=== PATIENT | male | born 1955 | race African-American/Black ===

== ENCOUNTER → 2019-09-15 | Outpatient (CLI) | payer BC, MEDICARE ==
[~2019-09-15] MED LIST: AMLO2.5T5 PO; ASPI1TAB31 PO; ATAZ300C PO; ELVI1TAB3 PO; EMTR1TAB8 PO; GABA-689 PO; IOHEXOL 180 MG/ML 10 ML VIAL. ONE; LISI1TAB19 PO; RITO100C PO; TRAM50TA PO; methylPREDNISolone ACETATE 40 MG/ML VIAL. ONE; methylPREDNISolone ACETATE 80 MG/ML VIAL. ONE
--- NOTE | 2019-09-15 17:48 | PAIN ---
DATE OF SERVICE: 09/15/2019 INITIAL CONSULTATION FOR PAIN CLINIC CHIEF COMPLAINT: Low back and right lower extremity pain. HISTORY OF PRESENT ILLNESS: This is a 64-year-old male who presents with history of pain since 2011, increasing now in the last year or so, status post lumbar laminectomy in 2012 at L3-L4, L4-L5 and L5-S1 with now a constant ache in the right lower extremity, mostly in the posterior gluteus, posterior thigh, but mostly below the knee on the anterior thigh as well as into the foot and the medial aspect of the right foot as well. The patient reports that shooting, constant, radiating, worse with walking, standing, changing positions, better with sitting or lying down, but awakens him from sleep at least once or twice a night, can affect his bowel or bladder control, but no loss of continence. The patient reports it is difficult for him to walk using a cane at times and does have it with him today. The patient has had epidural injections in the past, trigger point injections, has not had any formal physical therapy recently, was doing some stretching on his own. The injections have helped temporarily. The patient is taking tramadol as well as gabapentin, both of which do decrease the pain to a moderate extent. The patient did have an MRI scan of the lumbar spine dated 07/08/2019 showing multilevel spondylosis overall slowly progressed from previous exam in 2014, mildly worsened at the L3-L4 level. Also, concentric disk bulge at L3-L4, L4-L5 shows [id number] spinal stenosis and severe right greater than left neural foraminal narrowing. L5-S1 shows moderate spinal stenosis, severe bilateral neural foraminal narrowing as well. The patient rates his disability rating from 0-10, 10 being the worst, is a 9 with family home responsibilities, recreation and occupation; 7 with social activity; 2 with sexual behavior, 6 with self-care and 0 with life support activities. PAST MEDICAL HISTORY: Significant for mild hearing loss, urinary tract infections, hypertension, arthritis, cigarette smoking 1 pack every 2 days or so. SURGICAL HISTORY: Previous surgeries include lumbar laminectomy in 2012. No other surgeries. CURRENT MEDICATIONS: Include amlodipine, Genvoya, Excedrin, gabapentin, Truvada, tramadol, Norvir, Reyataz, and lisinopril. ALLERGIES: The patient has no known drug allergies. FAMILY HISTORY: Significant for arthritis. SOCIAL HISTORY: The patient does not drink alcohol, does smoke about half pack of cigarettes a day on average and has for many years. Does not use any illegal, illicit or recreational drugs. He is single. Lives locally in [place], [place]. REVIEW OF SYSTEMS: The patient's review of systems is positive for those items mentioned in history of present illness. All systems reviewed and otherwise negative. It is complete, full and well documented on the patient's chart. PHYSICAL EXAMINATION: VITAL SIGNS: The patient's blood pressure is 143/87, pulse 78, respirations 18, temperature 98.1 degrees Fahrenheit, height is 5 feet 8 inches, weight is 198 pounds. GENERAL: The patient is awake, alert, oriented, appropriate, very pleasant demeanor. HEENT: Shows normocephalic, atraumatic. Extraocular movements are intact and symmetrical. Oral cavity: Mucous membranes moist and pink. Dentition is intact. NECK: Shows anterior throat supple without palpable lymphadenopathy noted. Swallow reflex symmetrical. CHEST: Shows normal on inspection. Breath sounds clear to auscultation bilaterally. HEART: Shows S1, S2 clear. No murmurs auscultated. ABDOMEN: Soft, nontender, nondistended. No palpable organomegaly is noted. No rebound or guarding demonstrated. BACK: Shows spine grossly in the midline. Normal appearing thoracic kyphosis and minor flattening of lumbar lordotic curvature with well-healed surgical scarring noted. Lumbar paraspinous muscle shows symmetrical on inspection, with palpation shows some moderate tenderness diffusely throughout the upper, middle and lower distribution of paraspinous musculature, but only diffusely without radiation. The patient has good rotational motion of lumbar spine, both laterally as well as extension and flexion without significant increase in pain. EXTREMITIES: The patient's lower extremities show deep tendon reflexes at 2+ in the patellar, 1+ tendo-calcaneus tendons. Motor exam is strong with 5/5 dorsiflexion, extension, quadriceps and hamstring flexion and symmetrical. Peripheral pulses are 1+ posterior tibia. No peripheral edema is noted. Lower extremities are warm and dry to touch, equal in color and appearance. Gaenslen's and Jimmy's maneuvers are negative bilaterally also. Straight leg raise is negative for reproduction of radicular symptoms bilaterally. The patient is able to stand, stand on his toes without significant difficulty or loss of balance, walks with a slight favoring gait, does appear to favor the right lower extremity and has a cane he is using in his left hand. The patient's skin shows warm and dry, good turgor. No edema. No sores, rashes or bruising throughout. IMPRESSION: 1. This is a 64-year-old male with approximate 7-year history of low back pain, right lower extremity pain, status post lumbar laminectomy L3-L4, L4-L5 and L5-S1 in 2012 with good initial results, but now the pain is returning in the right lower extremity in a radicular fashion. 2. MRI scan of the lumbar spine as noted. 3. Hypertension. 4. Arthritis. 5. Cigarette smoking. PLAN: Options were discussed with the patient including conservative medical managements, physical therapies and interventional techniques. He would like to proceed with interventional techniques since he had some success with these in the past. We discussed a lumbar epidural steroid injection using description as well as anatomical models to describe the procedure. Risks were then discussed including, but not limited to bleeding, infection, possibility of epidural hematoma, subsequent neurological compromise, dural puncture, headaches, spinal cord and/or nerve damage, side effects of steroid medication and poor results regarding pain control. The patient understands and wished to proceed. The patient will return to the clinic in approximately 2 weeks for followup. He was counseled as to return appointment, activity level and side effects to be aware of. DIAGNOSES: Lumbar radiculopathy with lumbar degenerative disk disease and lumbar spinal stenosis and post-lumbar laminectomy syndrome. PROCEDURE: Lumbar epidural steroid injection, translaminar approach L5-S1 level using C-arm fluoroscopic guidance under sterile prep and drape using local anesthetic. MEDICATION INJECTED: A total of 120 mg Depo-Medrol plus 10 mL of preservative-free normal saline and 2 mL of contrast. CONDITION AT DISCHARGE: Stable. The patient tolerated the procedure well, had no complications. LETITIA CALVILLO MD DR: BETH/sally JOB#: [id number] / [id number]
== END ==
LOC: PNCL 08:25
PROVIDERS: ATTEND Anesthesiology
DX: M51.16 Intervertebral disc disorders with radiculopathy, lumbar region (principal); M48.061 Spinal stenosis, lumbar region without neurogenic claudication; M96.1 Postlaminectomy syndrome, not elsewhere classified; I10 Essential (primary) hypertension; F17.210 Nicotine dependence, cigarettes, uncomplicated; Z87.39 Personal history of other diseases of the musculoskeletal system and connective tissue; Z87.440 Personal history of urinary (tract) infections
CPT/HCPCS: 62323; J1030; J1040; Q9965

== ENCOUNTER → 2019-12-28 | Outpatient (CLI) | payer BC, MEDICARE ==
[~2019-12-28] MED LIST changes: +LISI1TAB23 PO; +NORVIR100 M1 PO
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
== END ==
LOC: PNCL 11:07
PROVIDERS: ATTEND Anesthesiology
DX: M51.16 Intervertebral disc disorders with radiculopathy, lumbar region (principal); M48.061 Spinal stenosis, lumbar region without neurogenic claudication; M96.1 Postlaminectomy syndrome, not elsewhere classified
CPT/HCPCS: 62323; J1030; J1040; Q9965

== ENCOUNTER → 2020-04-06 | Outpatient (CLI) | payer MEDICARE ==
--- NOTE | 2020-04-06 10:38 | PAIN ---
DATE OF SERVICE: 04/06/2020 PROGRESS NOTE FOR PAIN CLINIC DIAGNOSIS: Lumbar radiculopathy with lumbar degenerative disk disease, lumbar spinal stenosis and lumbar post-laminectomy syndrome. HISTORY OF PRESENT ILLNESS: The patient is a 64-year-old male who returns for followup status post lumbar epidural steroid injection x 2, most recently 12/28/2019. The patient did very well with about 85% improvement in the low back and left lower extremity pain. The patient reports the pain is returning now over the past few weeks, becoming more noticeable. The patient reports it is worse with walking, standing, change in positions, initially was doing much better with distance walking, work activities, household activities, traveling with greater ease and comfort, now the pain is returning in the low back and in the right greater than left lower extremity and present bilaterally, posterior gluteus, posterior thigh, posterior calves and lateral right calf as well. The patient reports it is an 8 on a scale of 10 at its worst over the past week, 6 on average, 5 at its least and is a 6 today. The patient reports no new motor or sensory deficits, no new bowel or bladder incontinence or other complaints. PHYSICAL EXAMINATION: VITAL SIGNS: The patient's blood pressure is 112/78, pulse 76, respirations 18, temperature 98.1 degrees Fahrenheit, height is 5 feet 8 inches, weight is 201 pounds. GENERAL: The patient is awake, alert, oriented, appropriate, very pleasant demeanor. HEENT: Shows normocephalic, atraumatic. Extraocular movements are intact and symmetrical. Oral cavity: Mucous membranes moist and pink. Dentition is intact. NECK: Shows anterior throat supple without palpable lymphadenopathy noted. Swallow reflex symmetrical. CHEST: Shows normal on inspection. Breath sounds are clear bilaterally. HEART: Shows S1, S2 clear. No murmurs auscultated. ABDOMEN: Soft, nontender, nondistended. No palpable organomegaly is noted. There is no rebound or guarding demonstrated. BACK: Shows spine grossly in the midline, slight exaggerated thoracic kyphosis and minor flattening of lumbar lordotic curvature. Lumbar paraspinous muscle shows symmetrical on inspection, with well-healed surgical scarring noted, with palpation shows some moderate tenderness diffusely bilaterally going diffusely without significant radiation. The patient has good rotational motion of lumbar spine, both laterally as well as extension and flexion without difficulty. EXTREMITIES: The patient's lower extremities show deep tendon reflexes at 2+ patellar, 1+ tendo-calcaneus tendons. Motor exam is strong with 5/5 dorsiflexion, extension, quadriceps and hamstring flexion and symmetrical. Peripheral pulses are 1+ posterior tibia. No peripheral edema bilaterally. Options were discussed with the patient. The patient's old chart was reviewed as his current medication regimen updated. Current review of systems updated today as well. We will proceed with a first in this series of lumbar epidural steroid injection today with fluoroscopic guidance. Risks were discussed including but not limited to bleeding, infection, possibility of epidural hematoma, subsequent neurologic compromise, dural puncture, headaches, spinal cord and/or nerve damage, side effects of steroid medication and poor results regarding pain control. The patient understands and wished to proceed. The patient will return to clinic in approximately 2 weeks for followup. He was counseled on return appointment, activity level and side effects to be aware of. DIAGNOSIS: Lumbar radiculopathy with lumbar degenerative disk disease, lumbar spinal stenosis and lumbar post-laminectomy syndrome. PROCEDURE: Lumbar epidural steroid injection, translaminar approach L5-S1 level using C-arm fluoroscopic guidance under sterile prep and drape using local anesthetic. MEDICATION INJECTED: A total of 120 mg Depo-Medrol plus 10 mL of preservative-free normal saline and 2 mL of contrast. CONDITION AT DISCHARGE: Stable. The patient tolerated the procedure well, had no complications. LETITIA CALVILLO MD DR: BETH/sally JOB#: [id number] / [id number]
== END ==
LOC: PNCL 09:41
PROVIDERS: ATTEND Anesthesiology
DX: M51.16 Intervertebral disc disorders with radiculopathy, lumbar region (principal); M48.061 Spinal stenosis, lumbar region without neurogenic claudication; M96.1 Postlaminectomy syndrome, not elsewhere classified
CPT/HCPCS: 62323; J1030; J1040; Q9965

== ENCOUNTER → 2020-07-14 | Outpatient (CLI) | payer MEDICARE ==
[~2020-07-14] MED LIST changes: -LISI1TAB19 PO; +LISI1TAB37 PO
--- NOTE | 2020-07-14 09:00 | PDOC ---
Progress Note - Pain Clinic Date of Service: DOS: DATE: 07/14/20 TIME: 08:56 Diagnosis: Dx: Lumbar radiculopathy with lumbar degenerative disc disease lumbar spinal stenosis and lumbar postlaminectomy syndrome History or Present Illness: HPI: 64-year-old male returns follow-up status post lumbar epidural steroid junction x1. Last seen April 06, 2020 patient did very well with it 90% improvement in the low back and bilateral lower extremity pain patient ports pain is returning now over the past 2 to 3 weeks in the low back bilateral posterior gluteus posterior thighs posterior calves the legs some in the lateral anterior aspect of the left calf and thigh as well. Patient reports it is aching and dull sharp shooting in the legs pain burning and tingling at times unbearable at times worse with walking standing changing positions better with sitting or lying down is waking her from sleep again for over the first few weeks lately at about every 6 hours patient reports is a 9 on scale 10 is worst 9 on average 7 is least this week and is a 7 today patient reports no new motor or sensory deficits no new bowel or bladder incontinence or other complaints. Physical Exam: VS: Blood pressure is 111/72 pulse 66 respirations 18 temperature 98.5 F height is 5 feet 8 inches weight is 181 pounds PE: PHYSICAL EXAMINATION: GENERAL: The patient is awake, alert, oriented, appropriate, very pleasant demeanor HEENT: Shows normocephalic, atraumatic. Extraocular movements are intact and symmetrical. Oral cavity: Mucous membranes moist and pink. Full dentures NECK: Shows anterior throat supple without palpable lymphadenopathy noted. Swallow reflex symmetrical. CHEST: Shows normal on inspection. Breath sounds are clear bilaterally, no rales rhonchi wheezes auscultated. HEART: Shows S1, S2 clear. No murmurs auscultated. ABDOMEN: Soft, nontender, nondistended, obese. No palpable organomegaly is noted. No rebound or guarding demonstrated. BACK: Shows spine grossly in the midline. Normal-appearing cervical lordotic curvature. There is slightly increased thoracic kyphosis, some minor flattening of the lumbar lordotic curvature. Lumbar paraspinous muscles show symmetrical on inspection, on palpation shows some moderate tenderness diffusely throughout the upper, middle and lower distribution of the paraspinous muscles bilaterally, but without specific trigger points, without radiation of pain. The patient has good rotational motion of the lumbar spine, both laterally as well as extension and flexion without significant difficulty. No tenderness over the spinous processes, sacrum or sacroiliac regions. EXTREMITIES: Lower extremities show deep tendon reflexes 2+ in the patellar and tendo calcaneus tendons. Motor exam is 5 on a scale of 5 with right dorsiflexion, extension, quadriceps and hamstring flexion and 5/5 on the left. Peripheral pulses are 1+ posterior tibial. No peripheral edema is noted bilaterally. Lower extremities are warm and dry to touch, equal in color and appearance. SKIN: Shows warm and dry, good turgor. No edema. No sores, rashes or bruising throughout. Procedure: Procedure: Options were discussed with the patient. Patient's old chart was reviewed his current medication regimen updated current review of systems updated today as well. We will proceed with a second in the series lumbar epidural steroid injection today with fluoroscopic guidance. Risks were discussed including but not limited to: Bleeding, infection, possibility of epidural hematoma and subsequent neurological compromise, dural puncture, headaches, spinal cord and/or nerve damage, side effects of steroid medication, and poor results regarding pain control. Patient understands wished to proceed. Patient will return to the clinic in approximate 2 weeks for follow-up was counseled as to return appointment activity level and side effects to be aware. Medication Injected: Med Injected: Procedure is lumbar epidural steroid injection under local anesthetic using sterile prep and drape at the L5-S1 level using C-arm fluoroscopic guidance in both AP and lateral views medications injected is 120 mg Depo-Medrol + 10 mL preservative-free normal saline and 2 mL contrast- condition at discharge is stable patient tolerated procedure well had no complications. Condition at Discharge: Condition at Discharge: Condition at discharge is stable patient tolerated the procedure well had no complications LETITIA CALVILLO MD Jul 14, 2020 09:00
== END ==
LOC: PNCL 08:20
PROVIDERS: ATTEND Anesthesiology
DX: M51.16 Intervertebral disc disorders with radiculopathy, lumbar region (principal); M48.061 Spinal stenosis, lumbar region without neurogenic claudication; M46.1 Sacroiliitis, not elsewhere classified; I10 Essential (primary) hypertension; Z79.82 Long term (current) use of aspirin; Z79.899 Other long term (current) drug therapy
CPT/HCPCS: 62323; J1030; J1040; Q9965